=== PATIENT | male | born 1970 | race Caucasian/White ===

== ENCOUNTER 2016-12-02 18:57 | Emergency (ER) | payer OTHER ==
[2016-12-02 19:11] LABS: BASOPHIL 0.6 % (0-2); EOSINOPHIL 3.5 % (0-5); HCT 46.9 % (42.0-52.0); HGB 16.9 g/dl (13.2-18.0); LYMPHOCYTE 28.5 % (15-48); MCH 34.7 pg (25.0-31.0); MCV 96.3 fL (78.0-100.0); MONOCYTE 9.4 % (0-12); MPV 8.9 fL (6.0-9.5); PLT 256 K/uL (150-400); RBC 4.87 M/uL (4.70-6.00); RDW 12.6 % (11.5-14.0); WBC 7.1 K/uL (4.0-10.5)
[2016-12-02 19:20] LABS: INR 1.02 (0.9-1.2); PTT 29.1 SECONDS (23.2-31.4)
[2016-12-02 19:27] LABS: ALBUMIN 4.6 g/dL (3.5-5.0); BILIRUBIN - TOTAL 0.4 mg/dL (0.1-1.0); GLOBULIN (CALCULATION) 1.8 g/dL (2.2-4.2); MAGNESIUM 2.05 mg/dL (1.40-2.10); POTASSIUM 3.8 mmol/L (3.5-5.1); TOTAL PROTEIN 6.4 g/dL (6.4-8.3)
[2016-12-02 19:30] LABS: CKMB 2.13 ng/mL (0.97-4.94); MYOGLOBIN 39 ng/mL (26-65); PRO-BNP 53 pg/mL (0-125); TROPONIN T < 0.010 ng/mL
== END 2016-12-02 20:50 | disposition home or self-care (01) ==
LOC: FER 18:57
PROVIDERS: Emergency Medicine
DX: R07.89 Other chest pain (principal); R06.02 Shortness of breath; F41.9 Anxiety disorder, unspecified; F32.9 Major depressive disorder, single episode, unspecified; Z87.891 Personal history of nicotine dependence; Z79.899 Other long term (current) drug therapy
CPT/HCPCS: 36415; 71010; 80053; 82550; 82553; 83735; 83874; 83880; 84484; 85025; 85610; 85730; 93005